=== PATIENT | male | born 1950 | race Caucasian/White ===

== ENCOUNTER 2016-10-24 09:09 | Emergency (ER) | payer OTHER ==
[~2016-10-24] VITALS: Ht 195.6 cm; Wt 150.0 kg
[~2016-10-24 09:09] MED LIST: ALBU17I INH; ASPI81 PO; BENA5TAB PO; CETI10 PO; ESTRTAB6 PO; FISH1000 PO; FLAX100013 PO; GLUC500C56 PO; LORTA10 PO; MAXZ PO; MSM1000C4 PO; PRIL20TA2 PO; TAB-TAB PO; TYLE3 PO; VITA400C28 PO; [UNRECOGNIZED DRUG - OTHER] PO/GT
[2016-10-24 09:11] VITALS: BP 177/81; PULSE 68; RESP 20; TEMP 97.7; O2SAT 99
[2016-10-24] MEDS ORDERED: TRIA1TAB5 PO (09:34)
[2016-10-24] MEDS ORDERED: VENTAER INH (09:34)
[2016-10-24] MEDS ORDERED: HYDRCRY (09:34)
[2016-10-24] MEDS ORDERED: BENA5TAB PO (09:34)
[2016-10-24] MEDS ORDERED: OMEP20TA PO (09:34)
[2016-10-24] MEDS ORDERED: TYLETAB34 PO (09:34)
[2016-10-24] MEDS ORDERED: CYCL1TAB29 PO (09:34)
--- NOTE | 2016-10-24 09:39 | PD ---
HPI Chief Complaint: Musculoskeletal Complaint Time Seen by Provider: 09:37 Travel History International Travel<30 days: No Contact w/Intl Traveler<30days: No Traveled to known affect area: No History of Present Illness HPI 66-year-old male presents to the emergency Department with complaint of left knee pain. He twisted this morning and heard a "pop" in his left knee. He is reporting pain to the lateral aspect. He says when he tries to bear weight his knee gives out. He has Lortab for chronic back pain and took a Lortab with some relief of pain. Denies paresthesias, loss of sensation, decreased range of motion to the affected extremity. Reports decreased strength just secondary to not being able to bear weight without feeling like his knees give out. Denies fever, chills, nausea, vomiting. Pain is worse when he tries to walk and bear his weight. Dr. Holden's primary care provider. No known allergies. No other modifying factors or associated signs and symptoms. PFSH Past Medical History Arthritis: Yes Blood Disorders: No Heart Rhythm Problems: No Cancer: No Cardiac Catheterization: No Cardiovascular Problems: No High Cholesterol: No Chest Pain: Yes Congestive Heart Failure: No Diabetes: No GERD: Yes Genitourinary: No Hypertension: Yes Musculoskeletal: Yes (CHRONIC NECK AND BACK PAIN) Neurologic: No Psychiatric: No Reproductive: No Respiratory: No Triglycerides - High: Yes Ulcer: Yes Tetanus Vaccination: > 5 Years Past Surgical History Abdominal Surgery: Yes (EGD WITH DILATION OF ESOPHAGEAL STRICTURE 2009) Coronary Artery Bypass Graft: No Genitourinary Surgery: Yes (RIGHT INGUINAL HERNIA 1985) Family History Family Myocardial Infarction: Yes Social History Alcohol Use: Yes (OCCASIONAL) Tobacco Use: No Substance Use: No Allergies-Medications (Allergen,Severity, Reaction): Coded Allergies: No Known Allergies (Verified , 10/24/16) Reported Meds & Prescriptions Reported Meds & Active Scripts Active Folding Walker/5" Wheels (Device) 1 Mis Mis 1 Ea .ROUTE DIRECTED Reported Triamterene-Hydrochlorothiazide 75-50 Mg Tab 1 Tab PO DAILY Benazepril (Benazepril HCl) 5 Mg Tab 5 Mg PO DAILY Omeprazole 20 Mg Tab 20 Mg PO BID Ventolin Hfa 18 GM Inh (Albuterol Sulfate) 90 Mcg/Act Aer 2 Puff INH Q4-6H PRN Hydrocodone Bitartrate (Hydrocodone Bitartrate (Bulk)) 1 Cry Cry 5 Mg Q4-6H Flexeril (Cyclobenzaprine HCl) 10 Mg Tab 10 Mg PO TID Tylenol-Codeine #3 (Acetaminophen-Codeine) 300-30 mg Tab 1 Tab PO Q4H PRN Review of Systems Except as stated in HPI: all other systems reviewed are Neg Physical Exam Narrative GENERAL: Well-nourished, well-developed male patient, in no acute distress SKIN: Warm and dry. HEAD: Atraumatic. Normocephalic. EYES: Pupils equal and round. No scleral icterus. No injection or drainage. ENT: Mucosa pink and moist. Airway patent. NECK: Trachea midline. CARDIOVASCULAR: Regular rate. RESPIRATORY: No accessory muscle use. GASTROINTESTINAL: Obese. MUSCULOSKELETAL: Left knee is nonedematous and nonerythematous; without ecchymosis; with full range of motion to 90; joint stable with negative drawer test; point tenderness to the lateral aspect. Left lower extremity supple and non-tense with 2+ pedal pulse and sensory intact. Patient able to bear weight on the affected extremity. No edema. No obvious deformities. NEUROLOGICAL: Awake and alert. Oriented 3. No obvious cranial nerve deficits. Motor grossly within normal limits. Normal speech. PSYCHIATRIC: Appropriate mood and affect; insight and judgment normal. Data Data Last Documented VS Vital Signs Date Time Temp Pulse Resp B/P Pulse Ox O2 Delivery O2 Flow Rate FiO2 10/24/16 09:11 97.7 68 20 177/81 99 Room Air Orders Knee, Complete (4vws) (10/24/16 09:29) Crutches (10/24/16 10:08) [facility] Medical Decision Making Medical Screen Exam Complete: Yes Emergency Medical Condition: Yes Medical Record Reviewed: Yes Differential Diagnosis Knee pain, arthritis, ligament tear, ligament injury, knee strain Narrative Course 66-year-old male with left knee injury after twisting this morning to turn and hearing a pop in his knee. Patient takes hydrocodone for chronic back pain and has taken some prior to arrival. Left knee x-ray ordered. Left knee x-ray unremarkable. X-ray Report provided to patient. Instructed patient to follow up with orthopedic. Prescription for outpatient MRI provided. Crutches provided for support. Walker prescribed for support. Patient verbalizes understanding and agreement with treatment plan. Patient is medically cleared and stable for discharge. Discussed reasons to return to the emergency department. Instructed patient to follow up with primary care provider. Patient agrees with treatment plan. The patients vital signs are stable and the patient is stable for outpatient follow-up and treatment. Patient discharged home, stable and in no acute distress. Diagnosis Primary Impression: Left knee pain Qualified Code: M25.562 - Left knee pain, unspecified chronicity Referrals: Orthopaedic Surgeon Primary Care Physician Patient Instructions: General Instructions, Knee Pain (ED) Additional Instructions: Tylenol or ibuprofen as needed and as directed to reduce pain and inflammation Rest, ice, compress, and elevate extremity to decrease pain and inflammation Knee Brace for support Crutches/walker/cane for support Avoid aggravating activity; increase activity as tolerated Follow-up with primary care provider Return to the emergency department immediately with worsening symptoms Med/Other Pt SpecificInfo: Prescription(s) given, No Change to Meds Scripts Folding Walker/5" Wheels 1 Mis Mis #1 Ea .route As Directed Prov:Beverley Kuo 10/24/16 Disposition: DISCHARGE HOME Condition: Stable Beverley Kuo Oct 24, 2016 09:39
[2016-10-24] MEDS ORDERED: MISC-274 (10:08)
--- NOTE | 2016-10-24 10:28 | RADRPT ---
EXAM DATE/TIME: 10/24/2016 09:52 [facility] COMPARISON: No previous studies available for comparison. INDICATIONS : Left lateral side knee pain post fall. MEDICAL HISTORY : None. SURGICAL HISTORY : None. ENCOUNTER: Initial ACUITY: 1 day PAIN SCORE: 5/10 LOCATION: Left Knee FINDINGS: Four views of the left knee demonstrate no fracture or dislocation. There is a small suprapatellar tory int effusion. There is no significant arthropathy and mineralization is within normal limits. No soft tissue abnormality or radiopaque foreign body is identified. CONCLUSION: Small joint effusion. No acute osseous abnormality is identified. Larry Gil MD on October 24, 2016 at 10:25 Board Certified Radiologist. This report was verified electronically.
== END 2016-10-24 10:51 | disposition home or self-care (01) ==
LOC: NEPK 09:09
DX: M25.562 Pain in left knee (principal); I10 Essential (primary) hypertension; E78.1 Pure hyperglyceridemia; Z87.39 Personal history of other diseases of the musculoskeletal system and connective tissue; Z87.19 Personal history of other diseases of the digestive system; X50.1XXA Overexertion from prolonged static or awkward postures, initial encounter
CPT/HCPCS: 73564; 99283; E0113

== ENCOUNTER → 2016-11-17 | Outpatient (CLI) | payer OTHER ==
[~2016-11-17] MED LIST changes: -ALBU17I INH; -ASPI81 PO; -CETI10 PO; +CYCL1TAB29 PO; -ESTRTAB6 PO; -FISH1000 PO; -FLAX100013 PO; -GLUC500C56 PO; +HYDRCRY; -LORTA10 PO; -MAXZ PO; +MISC-274; -MSM1000C4 PO; +OMEP20TA PO; -PRIL20TA2 PO; -TAB-TAB PO; +TRIA1TAB5 PO; -TYLE3 PO; +TYLETAB34 PO; +VENTAER INH; -VITA400C28 PO; -[UNRECOGNIZED DRUG - OTHER] PO/GT
[2016-11-17 09:55] LABS: MEAN CELL VOLUME 87.8 FL (80.0-100.0); MEAN CORPUSCULAR HEMOGLOBIN 30.1 PG (27.0-34.0); MEAN CORPUSCULAR HGB CONC 34.3 % (32.0-36.0); PLATELET COUNT 261 TH/MM3 (150-450); RED BLOOD COUNT 5.13 MIL/MM3 (4.50-5.90); RED CELL DISTRIBUTION WIDTH 13.1 % (11.6-17.2); REVIEW FLAG FINAL; WHITE BLOOD COUNT 7.5 TH/MM3 (4.0-11.0)
[2016-11-17 10:22] LABS: ALKALINE PHOSPHATASE 78 U/L (45-117); ALT (GPT) 34 U/L (12-78); ANION GAP 7 MEQ/L (5-15); AST (GOT) 26 U/L (15-37); BICARBONATE 31.7 MEQ/L (21.0-32.0); BLOOD UREA NITROGEN 12 MG/DL (7-18); CHLORIDE 101 MEQ/L (98-107); GLOMERULAR FILTRATION RATE 82 ML/MIN (>89); GLUCOSE,FASTING 109 MG/DL (74-99); HDL CHOLESTEROL 49.1 MG/DL (40.0-60.0); LDL CHOLESTEROL 131 MG/DL (0-99); POTASSIUM 4.1 MEQ/L (3.5-5.1); SODIUM (NA) 140 MEQ/L (136-145); TOTAL BILIRUBIN ADULT 0.5 MG/DL (0.2-1.0)
== END ==
LOC: CLAB 09:19
PROVIDERS: ATTEND Family Medicine
DX: I10 Essential (primary) hypertension (principal); E78.5 Hyperlipidemia, unspecified; K21.9 Gastro-esophageal reflux disease without esophagitis; M54.5 Low back pain; G25.0 Essential tremor; M54.17 Radiculopathy, lumbosacral region; Z12.5 Encounter for screening for malignant neoplasm of prostate
CPT/HCPCS: 36415; 80053; 80061; 84443; 85027

== ENCOUNTER → 2017-02-28 | Outpatient (CLI) | payer OTHER ==
[~2017-02-28] MED LIST changes: +ACET300T2 PO; +ASPI-110 PO; +BIOT50006 PO; +CETI10 PO; +ESTRTAB6 PO; +GARL1000; +GARL100T PO; +GARL580C; +MULT1TAB46 PO; +TH GCAP PO; +VITA1000 PO; +VITA200C3 PO; +[UNRECOGNIZED DRUG - CODE] PO; +[UNRECOGNIZED DRUG - CODE] PO
[2017-02-28 12:52] LABS: HEMATOCRIT 42.3 % (39.0-51.0); MEAN CELL VOLUME 89.1 FL (80.0-100.0); MEAN CORPUSCULAR HEMOGLOBIN 30.9 PG (27.0-34.0); MEAN CORPUSCULAR HGB CONC 34.7 % (32.0-36.0); PLATELET COUNT 242 TH/MM3 (150-450); RED BLOOD COUNT 4.74 MIL/MM3 (4.50-5.90); RED CELL DISTRIBUTION WIDTH 12.7 % (11.6-17.2); REVIEW FLAG FINAL; WHITE BLOOD COUNT 5.7 TH/MM3 (4.0-11.0)
--- NOTE | 2017-03-01 09:21 | EKG ---
Date Performed: 02/28/2017 Time Performed: 13:14:12 PTAGE: 66 years EKG: Sinus rhythm WITH FIRST DEGREE AV BLOCK POSSIBLE LEFT ATRIAL ENLARGEMENT ABNORMAL ECG PREVIOUS TRACING : 02/24/2013 11.55 Compared to prior tracing no significant change DOCTOR: Jerson Rae Interpretating Date/Time 03/01/2017 09:08:26
== END ==
LOC: CPRE 12:25
PROVIDERS: ATTEND Orthopaedic Surgery
DX: Z01.810 Encounter for preprocedural cardiovascular examination (principal); Z01.812 Encounter for preprocedural laboratory examination; S83.242A Other tear of medial meniscus, current injury, left knee, initial encounter; M94.262 Chondromalacia, left knee; M71.22 Synovial cyst of popliteal space [Baker], left knee; M67.52 Plica syndrome, left knee; I10 Essential (primary) hypertension; M79.609 Pain in unspecified limb; R94.31 Abnormal electrocardiogram [ECG] [EKG]; X58.XXXA Exposure to other specified factors, initial encounter
CPT/HCPCS: 36415; 85027; 93005

== ENCOUNTER → 2017-03-08 | Day surgery (SDC) | payer OTHER ==
[~2017-03-08] VITALS: Ht 195.6 cm; Wt 148.8 kg
[~2017-03-08] MED LIST changes: +ACETAMINOPHEN/HYDROcodone 325 MG/5 MG TAB PO PRN; +CHLORHEXIDINE GLUCONATE 2 % 1 PACK (2 CLOTHS) TOPICAL PRN; +DO NOT ADM ANY ANTICOAGULANT DRUGS PRN; -GARL1000; -GARL580C; +INSULIN HUMAN REGULAR 1,000 UNITS/10 ML VIAL SQ PRN; +LACTATED RINGER'S 1000 ML IV PRN; +METOPROLOL TARTRATE 25 MG TAB PO PRN; +MIDAZOLAM HCL 2 MG/2 ML VIAL ONE; -MISC-274; +MORPHINE SULFATE 4 MG/ML INJ IV PUSH PRN; +ONDANSETRON HCL 4 MG/2 ML VIAL IV PRN; +POVIDONE IODINE 5% (ANTISEPSIS KIT) 4 APPLICATIONS EACH NARE PRN; +PROPOFOL 200 MG/20 ML AMP IV ONE; +SODIUM CHLORID 0.9% 500 ML IV PRN; +SODIUM CHLORIDE 0.9% FLUSH 5 ML FLUSH IVF PRN; +SODIUM CHLORIDE 0.9% FLUSH 5 ML FLUSH IVF SCH; -TYLETAB34 PO; +fentaNYL CITRATE 250 MCG/5 ML AMP ONE
[2017-03-08] MEDS: BUPIVACAINE/EPINEPHRINE 0.25% 50 ML VIAL ONE ×2 (08:16→08:20)
[2017-03-08 12:30] VITALS: BP 156/84; PULSE 64; RESP 16; TEMP 97.5; O2SAT 98
--- NOTE | 2017-03-10 13:05 | MP ---
cc: Jessica TELLES. DATE OF SURGERY: 03/08/2017. PREOPERATIVE DIAGNOSIS: Primary internal derangement left knee with tear medial meniscus. 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 OPERATIVE PROCEDURE PERFORMED: Arthroscopic medial and lateral meniscectomies, chondral shave and resection, medial parapatellar plica left knee. SURGEON: Malcolm Telles MD TAR CHASER: Emilio LUNA. ANESTHESIA: Spinal with supplemental local. FINDINGS: 1. The suprapatellar pouch was free of loose bodies and appeared to be relatively normal. 2. The patellofemoral articulation showed some grade 1 and perhaps early grade 2 chondromalacia on the patella and some grade 2 and perhaps early grade 3 on the trochlea. Tracking was normal. There was a parapatellar plica that impinged against the medial femoral condyle. 3. In the medial compartment, there was some chondral irregularity in the femoral condyle and tibial plateau. There was a complex tear of the posterior horn of the medial meniscus going through zones A to B. 4. In the intercondylar notch, the anterior and posterior cruciate ligaments appeared normal and functioned normally. 5. In the lateral compartment, the femoral condyle was normal. The tibial plateau had some grade 1 and perhaps minimal grade 2 change anteriorly. The lateral meniscus had a radial tear that was at least 5 mm deep in zone D. The popliteus hiatus was normal. DESCRIPTION OF THE PROCEDURE IN DETAIL: The patient was brought to the operating room and a spinal anesthetic was administered. He was placed in a supine position on the operating table with the left leg in a leg black. The left knee was then prepped with alcohol, Hibiclens and Chloraprep and draped in the usual manner with the knee draped free. An appropriate time-out procedure was carried out. Local anesthesia was administered into each incision with Marcaine 0.25% with epinephrine. A stab wound was made in the anterolateral parapatellar tendon infrapatellar approach. The scope cannula was introduced. The knee was distended with lactated Ringer's solution and irrigated before viewing the anterior of the knee. After initial visualization, attention was directed to the medial compartment. A needle was introduced to delineate proper instrument placement. A stab wound was made. A probe was introduced. Full examination was completed. The tibial meniscus was debrided with a combination of a variety of basket forceps and the 4.0 mm full radius resector. Stable margins of meniscus were achieved. The femoral condyle and tibial plateau were likewise shaved achieving the same result. Attention was directed to the lateral compartment. The lateral meniscus tear was just at edge of where it would be more than likely inclined to further tear. For this reason, the torn portion was removed with a 3.4 mm Diovac suction basket forceps. A stable margin was achieved. After viewing the lateral gutter, attention was directed back to the plica. This was debrided with a combination of basket forceps and the shaver. The medial femoral condylar flap of articular cartilage and synovium was debrided so that it would no longer cause irritation. The knee was then irrigated well with lactated Ringer's solution. It was re-inspected. The needle was introduced. The fluid was evacuated from the knee. The knee was anesthetized intra-articularly in each of the stab wounds with a total of 30 mL of Marcaine 0.25% with epinephrine. That which was injected in the joint itself was diluted with 0.125%. The wounds were closed with a single subcuticular 4-0 Monocryl simple suture with buried knot. The Steri-Strips were used followed by dry dressing, ABD pad, sterile Sof-Rol and Narayan bandage. The patient was transferred from the operating room to the recovery room in satisfactory condition having tolerated the procedure well. Counts were correct. Specimens none. Estimated blood loss less than 5 mL. MD DEREK West/SIMI /9:22 AM /12:08 PM
== END | disposition home or self-care (01) ==
LOC: HSDC 05:44
PROVIDERS: ATTEND Orthopaedic Surgery
DX: S83.242A Other tear of medial meniscus, current injury, left knee, initial encounter (principal); S83.282A Other tear of lateral meniscus, current injury, left knee, initial encounter; M94.262 Chondromalacia, left knee; M67.52 Plica syndrome, left knee; I10 Essential (primary) hypertension; X58.XXXA Exposure to other specified factors, initial encounter
CPT/HCPCS: 01400; 29880; J2250; J7120; J3010

== ENCOUNTER → 2017-07-20 | Outpatient (CLI) | payer MEDICARE ==
[~2017-07-20] MED LIST changes: -ACETAMINOPHEN/HYDROcodone 325 MG/5 MG TAB PO PRN; -ASPI-110 PO; +ASPI1TAB57 PO; -CHLORHEXIDINE GLUCONATE 2 % 1 PACK (2 CLOTHS) TOPICAL PRN; +CYCL10TA PO; -CYCL1TAB29 PO; -DO NOT ADM ANY ANTICOAGULANT DRUGS PRN; -INSULIN HUMAN REGULAR 1,000 UNITS/10 ML VIAL SQ PRN; -LACTATED RINGER'S 1000 ML IV PRN; -METOPROLOL TARTRATE 25 MG TAB PO PRN; -MIDAZOLAM HCL 2 MG/2 ML VIAL ONE; -MORPHINE SULFATE 4 MG/ML INJ IV PUSH PRN; -OMEP20TA PO; +OMEP20TA93 PO; -ONDANSETRON HCL 4 MG/2 ML VIAL IV PRN; -POVIDONE IODINE 5% (ANTISEPSIS KIT) 4 APPLICATIONS EACH NARE PRN; -PROPOFOL 200 MG/20 ML AMP IV ONE; -SODIUM CHLORID 0.9% 500 ML IV PRN; -SODIUM CHLORIDE 0.9% FLUSH 5 ML FLUSH IVF PRN; -SODIUM CHLORIDE 0.9% FLUSH 5 ML FLUSH IVF SCH; -TH GCAP PO; -fentaNYL CITRATE 250 MCG/5 ML AMP ONE
[2017-07-20 13:33] LABS: HEMOGLOBIN 14.9 GM/DL (13.0-17.0); MEAN CELL VOLUME 90.8 FL (80.0-100.0); MEAN CORPUSCULAR HEMOGLOBIN 30.7 PG (27.0-34.0); MEAN CORPUSCULAR HGB CONC 33.8 % (32.0-36.0); MEAN PLATELET VOLUME 8.1 FL (7.0-11.0); PLATELET COUNT 232 TH/MM3 (150-450); RED BLOOD COUNT 4.85 MIL/MM3 (4.50-5.90); RED CELL DISTRIBUTION WIDTH 13.1 % (11.6-17.2); WHITE BLOOD COUNT 5.2 TH/MM3 (4.0-11.0)
[2017-07-20 13:46] LABS: ALKALINE PHOSPHATASE 77 U/L (45-117); ALT (GPT) 38 U/L (12-78); FREE T4 0.89 NG/DL (0.76-1.46); HDL CHOLESTEROL 53.1 MG/DL (40.0-60.0); TOTAL BILIRUBIN ADULT 0.4 MG/DL (0.2-1.0); TOTAL PROTEIN 7.5 GM/DL (6.4-8.2); TRIGLYCERIDES 100 MG/DL (42-150)
[2017-07-20 14:07] LABS: ALBUMIN 3.8 GM/DL (3.4-5.0); AST (GOT) 28 U/L (15-37); BICARBONATE 29.2 MEQ/L (21.0-32.0); BLOOD UREA NITROGEN 15 MG/DL (7-18); CALCIUM 8.8 MG/DL (8.5-10.1); CHLORIDE 104 MEQ/L (98-107); CHOLESTEROL 212 MG/DL (120-200); CHOLESTEROL/ HDL RATIO 3.99 RATIO; CREATININE 0.77 MG/DL (0.60-1.30); GLOMERULAR FILTRATION RATE 100 ML/MIN (>89); GLUCOSE,FASTING 115 MG/DL (74-99); LDL CHOLESTEROL 139 MG/DL (0-99); SODIUM (NA) 139 MEQ/L (136-145)
[2017-07-20 17:37] LABS: HEMOGLOBIN A1C 5.5 % (4.3-6.0)
== END ==
LOC: PLAB 09:40
PROVIDERS: ATTEND Family Medicine
DX: E78.5 Hyperlipidemia, unspecified (principal); I10 Essential (primary) hypertension; K21.9 Gastro-esophageal reflux disease without esophagitis; M54.5 Low back pain; G25.0 Essential tremor; M54.17 Radiculopathy, lumbosacral region; R73.02 Impaired glucose tolerance (oral); Z12.5 Encounter for screening for malignant neoplasm of prostate; Z68.37 Body mass index [BMI] 37.0-37.9, adult
CPT/HCPCS: 36415; 80053; 80061; 83036; 84439; 84443; 85027

== ENCOUNTER → 2017-11-23 | Outpatient (CLI) | payer MEDICARE ==
[2017-11-23 10:33] LABS: HEMATOCRIT 44.3 % (39.0-51.0); HEMOGLOBIN 15.2 GM/DL (13.0-17.0); MEAN CELL VOLUME 88.3 FL (80.0-100.0); MEAN CORPUSCULAR HEMOGLOBIN 30.3 PG (27.0-34.0); MEAN CORPUSCULAR HGB CONC 34.3 % (32.0-36.0); PLATELET COUNT 250 TH/MM3 (150-450); RED BLOOD COUNT 5.02 MIL/MM3 (4.50-5.90); RED CELL DISTRIBUTION WIDTH 12.9 % (11.6-17.2); WHITE BLOOD COUNT 5.4 TH/MM3 (4.0-11.0)
[2017-11-23 11:08] LABS: ALT (GPT) 33 U/L (12-78); CHOLESTEROL 187 MG/DL (120-200); TRIGLYCERIDES 87 MG/DL (42-150)
[2017-11-23 11:18] LABS: ALKALINE PHOSPHATASE 66 U/L (45-117); CHOLESTEROL/ HDL RATIO 3.87 RATIO; HDL CHOLESTEROL 48.2 MG/DL (40.0-60.0); LDL CHOLESTEROL 121 MG/DL (0-99); TOTAL BILIRUBIN ADULT 0.6 MG/DL (0.2-1.0); TOTAL PROTEIN 7.9 GM/DL (6.4-8.2)
[2017-11-23 11:37] LABS: ALBUMIN 4.3 GM/DL (3.4-5.0); AST (GOT) 32 U/L (15-37); BICARBONATE 29.7 MEQ/L (21.0-32.0); BLOOD UREA NITROGEN 16 MG/DL (7-18); CALCIUM 8.9 MG/DL (8.5-10.1); CHLORIDE 103 MEQ/L (98-107); CREATININE 0.79 MG/DL (0.60-1.30); GLOMERULAR FILTRATION RATE 97 ML/MIN (>89); GLUCOSE,FASTING 99 MG/DL (74-99); SODIUM (NA) 139 MEQ/L (136-145)
[2017-11-23 17:08] LABS: HEMOGLOBIN A1C 5.4 % (4.3-6.0)
== END ==
LOC: CLAB 09:48
PROVIDERS: ATTEND Family Medicine
DX: E78.5 Hyperlipidemia, unspecified (principal); R73.02 Impaired glucose tolerance (oral); I10 Essential (primary) hypertension; K21.9 Gastro-esophageal reflux disease without esophagitis; M54.5 Low back pain; G25.0 Essential tremor; M54.17 Radiculopathy, lumbosacral region; Z12.5 Encounter for screening for malignant neoplasm of prostate
CPT/HCPCS: 36415; 80053; 80061; 83036; 84443; 85027